=== PATIENT | male | born 1985 | race Caucasian/White ===

== ENCOUNTER → 2023-02-17 10:36 | Outpatient (CLI) | payer SELFPAY ==
--- NOTE | ~2023-02-17 | CT_ITS ---
EXAMINATION: CT IAC/mastoids BI wo con DATE: 02/17/2023 11:07 INDICATION: Bilateral unspecified hearing loss. Cholesteatoma. TECHNIQUE: Computed tomography (CT) of the temporal bones was performed without intravenous contrast. The dose-length product was 224.91 mGy-cm. COMPARISON: None FINDINGS: Orbits and visualized portions of the paranasal sinuses are normal. There is approximately 1.4 cm flu id attenuation lesion, unclear whether intra or extra-axial situated between the tory and the medial aspect of the posterior left temporal lobe. RIGHT TEMPORAL BONE: Postoperative change of prior right mastoidectomy with defect in the temporal bone posterior to the e xternal auditory canal which communicates with the middle ear cavity in which appears to involve or s ection of the scutum. There is thickening of the posterior two thirds of the tympanic membrane and sm all amount of soft tissue density between the tympanic membrane and the stapes. The malleus is absent . Separately and more medially is erosion of the temporal bone along the anterior and superior aspect of the anterior which begins inferiorly at the at the cephalad margin of the lateral aspect of the i nternal auditory canal and vestibule near the origin of the facial nerve canal. The erosion extends c ephalad and medially into the space within the anterior ring of the labyrinth appearing to erode into a small portion of the wall of the apex of the anterior ring of the semicircular canal as well as th rough the cortex along the anterosuperior margin of the temporal bone into the middle cranial fossa. There is soft tissue density within the region of bone erosion. The cochlea, oval window, more distal course of the facial nerve, jugular bulb and carotid canal appear normal. LEFT TEMPORAL BONE: The external auditory canal, mastoid air cells, tympanic membrane, scutum, ossicles and intervening p er sec space are normal. The oval window, cochlea, vestibule, semicircular canals, course of the faci al nerve are normal. IMPRESSION: 1. 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 This would be consi stent with provided history of a cholesteatoma. Differential would also include chronic otitis media or neoplasm either benign or malignant. 2. Postoperative change of prior right mastoidectomy. There is thickening of the adjacent posterior a spect of the tympanic membrane and absent malleus and small amount of soft tissue density along the r emaining stapes and incus. This could be related to the prior mastoidectomy or cholesteatoma. Correl ate with details of the prior surgery. 3. 1.4 cm cystic-appearing lesion situated between the tory and the medial left temporal lobe, indete rminate whether intra-axial or extra-axial the latter which would favor arachnoid cyst. For this and the erosion at the left temporal bone would recommend correlation with any prior outside imaging or f urther evaluation with pre and postcontrast MRI. Reviewed, dictated and finalized at location A. IMPRESSION: 1. 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 This would be consistent with pr ovided history of a cholesteatoma. Differential would also include chronic otit is media or neoplasm either benign or malignant. 2. Postoperative change of prior right mastoidectomy. There is
== END ==
DX: H91.93 Unspecified hearing loss, bilateral (principal); H71.90 Unspecified cholesteatoma, unspecified ear; R93.0 Abnormal findings on diagnostic imaging of skull and head, not elsewhere classified
CPT/HCPCS: 70480